=== PATIENT | female | born 1995 | race Caucasian/White ===

== ENCOUNTER 2020-02-17 00:21 | Emergency (ER) | payer OTHER, SELFPAY ==
[~2020-02-17] VITALS: Ht 160 cm; Wt 61.2 kg
[2020-02-17 00:34] VITALS: BP 128/68
--- NOTE | 2020-02-17 01:08 | NUR ---
SWABS COLLECTED AND TAKEN TO LAB.
[2020-02-17 01:32] VITALS: BP 128/68
--- NOTE | 2020-02-17 01:33 | NUR ---
Patient discharged with v/s stable. Written and verbal after care instructions given and explained. Patient verbalized understanding. Ambulatory with steady gait. All questions addressed prior to discharge. Advised to follow up with PMD.
== END 2020-02-17 01:32 | disposition home or self-care (01) ==
LOC: EDBD 00:21 → EEVIPCON 00:21 → MED 00:21
DX: R05 Cough (principal); J02.9 Acute pharyngitis, unspecified
CPT/HCPCS: 36415; 87081; 99283; C9803-CS; U0003-CS